=== PATIENT | female | born 1995 ===

== ENCOUNTER 2021-10-27 13:00 | Outpatient (RCR) | payer OTHER, SELFPAY ==
[2021-10-12 10:50] VITALS: BMI 23.5
[2021-10-12 12:37] VITALS: BP 100/70; PULSE 80; TEMP 36.7
[2021-10-12 15:00] LABS: Amphetamine Screen Urine Not Detected (Not Detect); Barbiturates, Urine Not Detected (Not Detect); Benzodiazepines Screen Urine Not Detected (Not Detect); Cannabinoid Screen Urine POSITIVE (Not Detect); Cocaine Screen Urine Not Detected (Not Detect); Fentanyl, urine Not Detected (Not Detect); Opiate Screen Urine Not Detected (Not Detect); Phencyclidine Screen Urine Not Detected (Not Detect)
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
--- NOTE | 2021-10-14 14:57 | PC.NURSE ---
case opened in treatment team
--- NOTE | 2021-10-19 12:37 | PC.NURSE ---
Patient stated she made an appointment with a [employer] in December 2021 since she has not been in a while and wants to f/u regarding past issues with HPV and RENETTA II.
--- NOTE | 2021-10-21 12:10 | P.PNPSP_ITS ---
Subjective Subjective Date of Service: 10/21/21 Reason For Visit: PTSD,anxiety,depression Interim History: Started taking Lamictal (4 days total) No rash noted Asking about trazodone to sleep--would like to d/c marijuana Has a prescription for Sertraline 50mg tabs, usually takes 2 to sleep reports feeling irritable when waking up from taking it Discussed alternate sleep aids, including doxepin. Open to trialing this. Review of Systems Constitutional: Reports as per HPI Mental Status Exam Mental Status Exam Patient Appearance: Well Grooomed and Appropriate Patient Orientation: Person, Place, Time and Situation Level of Consciousness: Appropriate and Alert Patient Behavior: Appropriate, Cooperative and Good Eye Contact Mood Description: Depressed and Anxious Affect Description: Depressed and Anxious Patient Cognition Impaired: No Ability to Follow Directions: Excellent Speech Pattern: Clear, Appropriate and Coherent Memory Description: Intact Hallucinations: None Delusions: Not Present Thought Process: Intact Thought Content: positive for Intact and positive for Suicidal Ideation (Passive, no intent or plan.) Judgement: Fair Diagnostics Vital Signs (24Hr): BMI result Body Mass Index 23.5 Assessment & Plan Assessment & Plan (1) Major depressive disorder, recurrent severe without psychotic features: Status: Acute Code(s): F33.2 - Major depressive disorder, recurrent severe without psychotic features Assessment and Plan: * continue lamctial * doxepin 25mg QHS * follow up next week Certification I certify that partial hospital treatment is medically necessary due to the symptoms and problems resulting from the patient's mental illness and the failure to treat the patient at the partial hospital level of care would likely result in the patient requiring inpatient psychiatric care which could not be prevented at a less intensive level of care. I spent minutes with the patient and/or on the patient floor today, greater than?50% of which was spent counseling/coordinating care. Discharge Plan Discharge Attending provider: Fran Santizo Medications: New lamotrigine [Lamictal] 25 mg tablet 25 mg PO DAILY 14 Days Qty: 14 0RF doxepin 25 mg capsule 25 mg PO BEDTIME Qty: 7 0RF
--- NOTE | 2021-10-26 16:13 | HO.PHPPROGNO ---
Subjective Subjective Date of Service: 10/26/21 Reason For Visit: PTSD,anxiety,depression Medical Problems Affecting Mental Status: No Interim History: Continues with depressed, anxious mood and affect. No SI, feels safe. Consumed alcohol several days ago. Has not yet started the doxepin that was ordered last week. Has not been taking the Lamictal consistently every day. Continues with difficulty with anxiety/poor sleep. Called several rehab programs for substance use disorder. Interested in possibly IOP or a therapist that is addiction certified. Medication Compliance: Intermittent Side effects from medications: No Attending Groups: Yes Review of Systems Acute medical concerns: No Medical Review of Systems: unchanged Review of Systems Review of Systems Yes all other systems are reviewed and are negative Constitutional: Reports no additional constitutional complaints Mental Status Exam Mental Status Exam Narrative: No SI reported, states feels safe. Patient Appearance: Well Grooomed and Appropriate Patient Orientation: Person, Place, Time and Situation Level of Consciousness: Appropriate and Alert Patient Behavior: Appropriate, Cooperative and Good Eye Contact Mood Description: Depressed and Anxious Affect Description: Depressed and Anxious Patient Cognition Impaired: No Ability to Follow Directions: Excellent Speech Pattern: Clear, Appropriate and Coherent Memory Description: Intact Hallucinations: None Delusions: Not Present Thought Process: Intact Thought Content: positive for Intact Depressive Symptoms: Increased Anxiety, Diff. Making Decisions, Difficulty Sleeping, Loss of Int. in Activity and Feelings of Guilt Judgement: Fair Diagnostics Vital Signs (24Hr): BMI result Body Mass Index 23.5 Assessment & Plan Assessment & Plan (1) Major depressive disorder, recurrent severe without psychotic features: Status: Acute Code(s): F33.2 - Major depressive disorder, recurrent severe without psychotic features Assessment and Plan: Continues with depressed, anxious mood and affect. No SI, feels safe. Consumed alcohol several days ago. No withdrawals from alcohol. States struggles with maintaining abstinence. Has also been using cannabis, struggles with this. Desires abstinence from both substances, finding it difficult. Has not yet started the doxepin that was ordered last week. We discussed medication in detail, as it can made in sleep and also help with depression and anxiety. She stated that she would start it. Discussed p.r.n. hydroxyzine, patient states that she would like to try this medication. Has not been taking the Lamictal consistently every day. Education provided regarding the medication, patient states that she will take the rest of the tabs daily, so that she can titrate upwards after the 14 tabs are completed. Continues with difficulty with anxiety/poor sleep. States some of these concerns are due to withdrawals and cravings regarding cannabis. Called several rehab programs for substance use disorder, was waiting to hear back regarding her insurance. States she spoke with her significant other last evening, who was supportive. Discussed possibly other options rather than a residential program Interested in possibly IOP or a therapist that is addiction certified. Information regarding local intensive outpatient program provided, as well as name of the local therapist certified in addiction. (2) Generalized anxiety disorder: Status: Acute Code(s): F41.1 - Generalized anxiety disorder (3) Post-traumatic stress disorder, chronic: Status: Acute Code(s): F43.12 - Post-traumatic stress disorder, chronic (4) Alcohol abuse: Status: Acute Code(s): F10.10 - Alcohol abuse, uncomplicated Plan 1. Continue with current [facility] plan of care. 2. Hydroxyzine 25 mg t.i.d. p.r.n. for anxiety. 3. Continue all other medications as currently prescribed. 4. Harm reduction discussion. 5. Follow-up as per protocol. Patient educated on: diagnosis, medication risk/benefits, substance abuse and therapeutic strategies Informed Consent: understands Reason for contiued partial hosp. stay Substantial Risk for: harm to self, inability to function and rapid decompensation Certification I certify that partial hospital treatment is medically necessary due to the symptoms and problems resulting from the patient's mental illness and the failure to treat the patient at the partial hospital level of care would likely result in the patient requiring inpatient psychiatric care which could not be prevented at a less intensive level of care. I spent minutes with the patient and/or on the patient floor today, greater than?50% of which was spent counseling/coordinating care. Discharge Plan Discharge Attending provider: Fran Santizo Medications: New lamotrigine [Lamictal] 25 mg tablet 25 mg PO DAILY 14 Days Qty: 14 0RF doxepin 25 mg capsule 25 mg PO BEDTIME Qty: 7 0RF hydroxyzine HCl 25 mg tablet 25 mg PO TID PRN (Reason: anxiety) Qty: 21 0RF Stand Alone Forms: Patient Portal Discharge page
--- NOTE | 2021-10-27 15:39 | PC.NURSE ---
I called Jeanna to let her know that Mil[facility] from [facility] (per Shelly Patel, [facility], clinician here) asking for her to call and complete her assessment. She said she would call and is contemplating attending [facility] if it works out.
--- NOTE | 2021-10-28 10:00 | HO.PHPPROGNO ---
Subjective Subjective Date of Service: 10/28/21 Reason For Visit: PTSD,anxiety,depression Medical Problems Affecting Mental Status: No Interim History: Patient continues with is anxiety/depression. Struggling with multiple stressors, including financial, relationship. Continue struggling with substance use as well. Tearful during encounter. No SI reported. Started taking doxepin and hydroxyzine, reports that they are somewhat helpful. Medication Compliance: Yes Side effects from medications: No Attending Groups: Yes Review of Systems Acute medical concerns: No Medical Review of Systems: unchanged Review of Systems Review of Systems Yes all other systems are reviewed and are negative Constitutional: Reports no additional constitutional complaints Mental Status Exam Mental Status Exam Narrative: No SI reported. Patient Appearance: Well Grooomed and Appropriate Patient Orientation: Person, Place, Time and Situation Level of Consciousness: Appropriate and Alert Patient Behavior: Appropriate, Cooperative, Good Eye Contact and Crying Mood Description: Depressed and Anxious Affect Description: Depressed and Anxious Patient Cognition Impaired: No Ability to Follow Directions: Excellent Speech Pattern: Clear, Appropriate and Coherent Memory Description: Intact Hallucinations: None Delusions: Not Present Thought Process: Intact Thought Content: positive for Intact Depressive Symptoms: Increased Anxiety, Diff. Making Decisions, Difficulty Sleeping, Loss of Int. in Activity, Feelings of Guilt and Unhappiness Judgement: Fair Diagnostics Vital Signs (24Hr): BMI result Body Mass Index 23.5 Assessment & Plan Assessment & Plan (1) Major depressive disorder, recurrent severe without psychotic features: Status: Acute Code(s): F33.2 - Major depressive disorder, recurrent severe without psychotic features Assessment and Plan: Patient continues with dysphoric mood, anxiety. Also struggles with substance use. Reports increased financial stressors, relationship stressor. No SI, no safety concern. Tearful during encounter. Agreeable to continue titration up of Lamictal. She is awaiting call from [facility] so that she may start working with a therapist. (2) Generalized anxiety disorder: Status: Acute Code(s): F41.1 - Generalized anxiety disorder (3) Post-traumatic stress disorder, chronic: Status: Acute Code(s): F43.12 - Post-traumatic stress disorder, chronic (4) Alcohol abuse: Status: Acute Code(s): F10.10 - Alcohol abuse, uncomplicated Assessment and Plan: Continues to struggle with the use. Discussed recovery supports available in the community. Information regarding comprehensive care center provided. Plan 1. Patient plans to discharge from [facility] today. 2. Continue Lamictal titration, will take 50 mg daily times 14 days after completion of 25 mg daily times 14 days. Then will continue with 100 mg daily going forward. 3. Will continue with doxepin 25 mg, hydroxyzine p.r.n.. 4. Patient to follow-up with outpatient providers going forward. Patient educated on: diagnosis, medication risk/benefits and substance abuse Informed Consent: understands Reason for contiued partial hosp. stay Substantial Risk for: inability to function Certification I certify that partial hospital treatment is medically necessary due to the symptoms and problems resulting from the patient's mental illness and the failure to treat the patient at the partial hospital level of care would likely result in the patient requiring inpatient psychiatric care which could not be prevented at a less intensive level of care. I spent minutes with the patient and/or on the patient floor today, greater than?50% of which was spent counseling/coordinating care. Discharge Plan Discharge Attending provider: Fran Santizo Medications: New lamotrigine [Lamictal] 25 mg tablet 25 mg PO DAILY 14 Days Qty: 14 0RF doxepin 25 mg capsule 25 mg PO BEDTIME Qty: 30 0RF hydroxyzine HCl 25 mg tablet 25 mg PO TID PRN (Reason: anxiety) Qty: 90 0RF lamotrigine [Lamictal] 25 mg tablet 50 mg PO DAILY 14 Days Qty: 28 0RF Rx Instructions: After completion of lamotrigine 25mg daily X 14 days, astart lamotrigine 50mg daily X 14 days. lamotrigine 100 mg tablet 100 mg PO DAILY Qty: 30 0RF Rx Instructions: After completion of lamotrigine 50mg daily X 14 days, start lamotrigine 100mg daily. Stand Alone Forms: Patient Portal Discharge page Patient Education: Depression (DC), Alcohol Use Disorder (DC)
--- NOTE | 2021-10-28 15:35 | PC.NURSE ---
Patient scheduled for discharge today. She reports she is returning to work next week as she is having issues with her PFMLA and is concerned about finances. Patient presented with more stable mood. Improvement in her PHQ9. Denied SI or thoughts to harm herself. Patient has the crisis numbers if needed. Zandra is calling [facility] to confirm appointments as patient has a prescriber Darvin Cook however reports she does not have an upcoming appointment.
== END 2021-10-28 23:59 | disposition home or self-care (01) ==
LOC: HO.PHPA 13:00
PROVIDERS: Nurse Practitioner Psychiatric/Mental Health; Visit Provider Psychiatry & Neurology Psychiatry
DX: F33.2 Major depressive disorder, recurrent severe without psychotic features (principal); F41.1 Generalized anxiety disorder; F43.12 Post-traumatic stress disorder, chronic; F12.20 Cannabis dependence, uncomplicated; F15.20 Other stimulant dependence, uncomplicated; F14.20 Cocaine dependence, uncomplicated; F10.10 Alcohol abuse, uncomplicated; Z79.899 Other long term (current) drug therapy
CPT/HCPCS: 80307; 90791; 90853